=== PATIENT | female | born 1965 | race Caucasian/White ===

== ENCOUNTER → 2024-10-13 | Outpatient (CLI) | payer OTHER, SELFPAY ==
[2024-10-13 13:08] LABS: AST(SGOT) 32 U/L (15-37); Alanine Aminotransfer ALT/SGPT 58 U/L (13-56); Albumin, Serum 3.8 g/dL (3.2-5.0); Alkaline Phosphatase 57 U/L (45-117); Bilirubin, Direct 0.12 mg/dL (0.00-0.30); Globulin 3.9 g/dL (2.2-4.2); Protein, Total 7.7 g/dL (6.4-8.2)
[2024-10-15 09:07] LABS: Endomysial Antibody IgA Negative (Negative); Immunoglobulin A 253 mg/dL (87-352); t-Transglutaminase IgA <2 U/mL (0-3)
== END | disposition home or self-care (01) ==
PROVIDERS: Referring Provider Nurse Practitioner Acute Care; Visit Provider Nurse Practitioner Acute Care
DX: R19.7 Diarrhea, unspecified (principal); R15.2 Fecal urgency; R10.9 Unspecified abdominal pain
CPT/HCPCS: 36415; 80076; 82784; 83516; 84443; 86255

== ENCOUNTER → 2024-11-02 | Outpatient (CLI) | payer OTHER, SELFPAY ==
--- NOTE | 2024-11-02 09:19 | US_ITS ---
HISTORY: Elevated ALTs. TECHNIQUE: Doshi scale and color doppler imaging was performed of the right upper quadrant. 70 images. COMPARISON: None. FINDINGS: LIVER: 19.2 cm in length. Increased echogenicity with a 2.3 x 3 x 3.8 cm cyst in the left lobe. No intrahepatic ductal dilatation. MAIN PORTAL VEIN: Patent with hepatopedal flow. COMMON BILE DUCT: 5 mm in diameter. GALLBLADDER: Surgically absent. PANCREAS: Partially obscured distally due to overlying bowel gas. RIGHT KIDNEY: 10.7 cm in length with a cortical thickness of 1.1 cm. 6 mm echogenic focus in the upper pole without hydronephrosis. US/Abdomen Limited IMPRESSION: Hepatic steatosis with hepatomegaly. 3.8 cm cyst in the left hepatic lobe. Cholecystectomy. Nonobstructing right renal calculus. Electronically Signed: Emily Lujan MD at 14:57 EST ,
[2024-11-04 12:08] LABS: Calprotectin, Stool 16 ug/g (0-120)
== END | disposition home or self-care (01) ==
PROVIDERS: Referring Provider Nurse Practitioner Acute Care; Visit Provider Nurse Practitioner Acute Care
DX: R74.01 Elevation of levels of liver transaminase levels (principal); K58.9 Irritable bowel syndrome, unspecified; R19.7 Diarrhea, unspecified; R15.2 Fecal urgency; R10.9 Unspecified abdominal pain
CPT/HCPCS: 76705; 83993; 87177; 87209; 87493; 87506

== ENCOUNTER 2024-12-15 12:09 | Day surgery (SDC) | payer OTHER, SELFPAY ==
[2024-12-15] VITALS (8 sets, daily range): BP systolic 90–153; BP diastolic 52–84; PULSE 65–90; RESP 16–18; TEMP 36.4–36.9; O2SAT 98–100; BMI 33.7
--- NOTE | 2024-12-15 12:45 | PCM.PRE.AN2 ---
ASA Classification* ASA Classification ASA Classification: 2 Assessment & Plan Anesthesia* Anesthesia Assessment Anesthesia Assessment: Discussed sedation and/or anesthesia options, risks, benefits, and alternatives with patient/parents/legal guardian/POA. Questions invited. The patient/parents/legal guardian/POA seems to understand and agrees to proceed with anesthesia plan. Reviewed the physical assessment, medical history, allergy history and patient home medications list prior to surgery/procedure/anesthetic and documented any changes. Performed airway and anesthesia risk assessments. 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 When Was Last Pacemaker Check QUESTION #4 FULL TEXT: You/Your Family Experience fever (hyperthermia) with Anesthesia Last Oral Intake Last Oral intake: Last Oral Intake NPO since 09:30 12/15/24 12:28 Meds taken in AM with sips of water? 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 Female Yes 12/11/24 13:18 HX of Motion Sickness Yes 12/11/24 13:18 HX of N/V After Surgery No 12/11/24 13:18 Non-Smoker Yes 12/11/24 13:18 Duration of Surgery greater No 12/11/24 13:18 than 60 minutes Number of Risk Factors 3 12/11/24 13:18 PONV Score Moderate Risk 12/11/24 13:18 Height & Weight Height & Weight: Anesthesia: Height & Weight Height 5 ft 3 in 12/15/24 12:28 Weight: 86.5 kg 12/15/24 12:28 Body Mass Index (BMI) 33.7 12/15/24 12:28 Respiratory Assessment Respiratory Assessment - sed middle school teacher: Respiratory Tract Infection Hx - sed middle school teacher Hx Respiratory Tract Infection No 12/11/24 13:18 STOP Sleep Apnea STOP Sleep Apnea - sed middle school teacher: STOP Sleep Apnea - sed middle school teacher Hx Hypertension No 12/11/24 13:18 Hx Sleep Apnea No 12/11/24 13:18 CPAP BIPAP Do you snore loudly (louder No 12/11/24 13:18 than talking or can be heard Do you often feel tired/ No 12/11/24 13:18 fatigued/ sleepy during daytime? Has anyone observed you stop No 12/11/24 13:18 breathing during sleep? STOP Results Negative 12/11/24 13:18 QUESTION #5 FULL TEXT : Do you snore loudly (louder than talking or can be heard through closed doors)? 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 Specify any problems Hx of Preganancy in last 3 No 12/11/24 13:18 Months Nurse Filling Out Transfusion DSCHRIBER 12/11/24 13:18 & Questions: Date: 12/11/24 12/11/24 13:18 Time: 13:19 12/11/24 13:18 Patient unable to answer at this time (ie. confused, unrespo /Reproduction History /Reproductive History - sed middle school teacher: /Reproductive Hx- sed middle school teacher Hx Now No 12/11/24 13:18 Gestational Age (in weeks): EDC: Hx Hx Para Hx Section SAB No 12/11/24 13:18 PFSH Medical History Wears glasses Post-menopausal Alcohol use Restless legs History of IBS Former smoker Lymphocytosis Urticaria Diarrhea Home Medications ?Medication ?Instructions ?Recorded ?Last Taken ?Type cyproheptadine 4 mg tablet 4 mg PO QHS 10/12/24 12/14/24 History desloratadine 5 mg tablet 5 mg PO QDAY 10/12/24 12/14/24 History famotidine 20 mg tablet 20 mg PO BID 10/12/24 12/15/24 History montelukast 10 mg tablet 10 mg PO QDAY 10/12/24 12/14/24 History acetaminophen 500 mg capsule 500 mg PO Q6H PRN pain 10/13/24 12/12/24 History calcium carbonate (Tums) 300 mg PO BID PRN dyspepsia 10/13/24 12/14/24 History cholestyramine (with sugar) 4 gram 4 g PO BID #60 ea 10/13/24 12/14/24 Rx powder for susp in a packet (Questran) Allergy/AdvReac Type Severity Reaction Status Date / Time cat dander (cats) Allergy Hives Verified 12/15/24 12:27 egg (egg whites) Allergy Hives Verified 12/15/24 12:50 Environmental Allergies: Allergy Hives Verified 12/15/24 12:27 Uncoded (dust) grass pollen Allergy Hives Verified 12/15/24 12:27 mold Allergy Hives Verified 12/15/24 12:27 Family History Mother CAD (coronary artery disease) Diabetes Hypertension Father CAD (coronary artery disease) Surgical History Hx laparoscopic cholecystectomy Hx of tubal ligation Social History Smoking Status: Former smoker alcohol intake: current alcohol intake frequency: holidays/special occasions only Review of Systems (Anesthesia) ROS Narrative System reviewed and no additional complaints, except as documented.
--- NOTE | 2024-12-15 13:30 | COLBX_PTH ---
PATIENT: CRISSY RAMIREZ LOC: EN U#:[id number] AGE/SX: 59/F ROOM: RE12/15/[address]: Dr. Hari Chavarria DO : 1965 BED: DIS: 12/15/2024 SPEC #: [id number] RECD: 12/15/24 14:41 STATUS: KIANNA REMinor #: [id number] WING: 12/15/24 13:[address]: Hari Chavarria DEPT: SURGICAL PATHOLOGY RECD BY: Fanny Ortez ENTERED: 12/16/24 07:52 SP TYPE: COLON BX OTHR DR: STEVEN Willoughby Tissues: A - Ileum, NOS B - COLON BIOPSY Procedures: Surgery Specimen Level IV HEADER OPERATION: Colonoscopy, biopsy PRE-OP DIAGNOSIS: Diarrhea, fecal urgency TISSUE SUBMITTED: A- Terminal ileum biopsy, B- Random colonic biopsy MICROSCOPIC DIAGNOSIS A. Terminal ileum, biopsy: Fragments of small intestinal mucosa, no pathologic diagnosis. See comment. B. Colon, random biopsy: Fragments of colonic mucosa with focal minimal glandular distortion and focal area suggestive of granuloma formation. See comment. 12/17/2024 COMMENT A. Prominent lymphoid aggregates are noted. B. Active inflammation is not seen. Correlation with clinical, endoscopic findings and appropriate follow up are necessary. MICROSCOPIC DESCRIPTION Slides are reviewed. GROSS DESCRIPTION A. Received in fixative is one container labeled with the patient's name and designated Terminal ileum biopsy. The specimen consists of multiple irregular fragments of light urbano soft tissue that in aggregate measure 1 x 0.4 x 0.1 cm. The specimen is totally submitted in one cassette. B.Received in fixative is one container labeled with the patient's name and designated Random colonic biopsy. The specimen consists of multiple irregular fragments of light urbano soft tissue that in aggregate measure 2 x 0.5 x 0.1 cm. The specimen is totally submitted in one cassette. 12/16/2024 TC:5 CPT:94487l9
--- NOTE | 2024-12-15 13:47 | PCM.HP.STD ---
HPI - General General Date of Admission: 12/15/24 Date of Service: 12/15/24 Chief Complaint: Diarrhea and abdominal pain HPI Narrative CRISSY RAMIREZ, is a 59 F who presents for the endoscopic evaluation of diarrhea and abdominal pain. 59y/o female presents for consultation with complaints of diarrhea. She reports a life long issue with diarrhea with a change in frequency in the past few months. She has experienced sudden onset abdominal cramping during meals with urgency and diarrhea. [place] 6. She denies any weight loss or bleeding. Primary care records reviewed. Cologuard was negative July 2023. She will complete stool testing and trial cholestyramine while awiting colonoscopy. Labs completed 09/11/2024 revealed mildly elevated ALT (34). She will repeat a liver panel now and schedule ABD US. She will follow-up in the office post work-up to review findings. Cologuard negative 07/31/2023 - CCX 2017 - no change with probiotic - she has never been on cholestyramine or colestipol - no improvement with OTC fiber supplements - diarrhea now more than once a day since CCX - urgency the past few months with cramping during meals and having to get up from the table - not with every meals - denies any loss of appetite - if she takes an OTC antidiarrheal before a meal this can help prevent diarrhea - especially when dining out - she does have nocturnal stools on occasion - denies any weight loss or bleeding - she avoids salads, ice cream, Swazi (anything spicy), yogurt - eats a lot of red meat and pork - denies any fevers or night sweats - denies any h/o colonoscopy - Paternal GM with Colon CA - possibly - occasional HB dietary related - denies any N/V - denies any dysphagia - chronic hives - allergy testing completed - allergy shots bi-weekly and on PO - no change in medication doses - denies any stool testing - denies any h/o pancreatitis - she is not diabetic - denies any family h/o IBD or celiac disease \ [facility] Medical History Wears glasses Post-menopausal Alcohol use Restless legs History of IBS Former smoker Lymphocytosis Urticaria Diarrhea Home Medications ?Medication ?Instructions ?Recorded ?Last Taken ?Type cyproheptadine 4 mg tablet 4 mg PO QHS 10/12/24 12/14/24 History desloratadine 5 mg tablet 5 mg PO QDAY 10/12/24 12/14/24 History famotidine 20 mg tablet 20 mg PO BID 10/12/24 12/15/24 History montelukast 10 mg tablet 10 mg PO QDAY 10/12/24 12/14/24 History acetaminophen 500 mg capsule 500 mg PO Q6H PRN pain 10/13/24 12/12/24 History calcium carbonate (Tums) 300 mg PO BID PRN dyspepsia 10/13/24 12/14/24 History cholestyramine (with sugar) 4 gram 4 g PO BID #60 ea 10/13/24 12/14/24 Rx powder for susp in a packet (Questran) Allergy/AdvReac Type Severity Reaction Status Date / Time cat dander (cats) Allergy Hives Verified 12/15/24 12:27 egg (egg whites) Allergy Hives Verified 12/15/24 12:50 Environmental Allergies: Allergy Hives Verified 12/15/24 12:27 Uncoded (dust) grass pollen Allergy Hives Verified 12/15/24 12:27 mold Allergy Hives Verified 12/15/24 12:27 Family History Mother CAD (coronary artery disease) Diabetes Hypertension Father CAD (coronary artery disease) Surgical History Hx laparoscopic cholecystectomy Hx of tubal ligation Social History Smoking Status: Former smoker alcohol intake: current alcohol intake frequency: holidays/special occasions only ROS Constitutional Constitutional: Denies fatigue, fever(s), poor appetite, weight gain or weight loss Gastrointestinal Gastrointestinal: Denies belching, bloating, change in bowel habits, change in stool character, chewing difficulty, coffee ground emesis, constipation, cramping, diarrhea, dyspepsia, dysphagia, early satiety, excessive flatus, fecal incontinence, heartburn, hematemesis, hematochezia, hemorrhoids, loose stools, melena, nausea, odynophagia, rectal bleeding, tenesmus, vomiting or weight changes Vital Signs Vital Signs Vital Signs: 12/15/24 12:28 12/15/24 12:28 12/15/24 12:53 Temperature 97.7 F L 97.7 F L Temperature Source Temporal Pulse Rate 90 90 Respiratory Rate 18 18 Respiratory Pattern Normal Blood Pressure 153/84 H 153/84 H Blood Pressure Mean 107 Blood Pressure Source Monitor Blood Pressure Position Semi-Fowlers Blood Pressure Location Left Arm Pulse Ox 99 99 Oxygen Delivery Method Room Air Room Air Weight Weight: 190 lb 11.198 oz Body Mass Index (BMI) 33.7 Assessment & Plan Assessment/Plan (1) Diarrhea: QUALIFIERS: Diarrhea type: unspecified type Qualified Code(s): R19.7 - Diarrhea, unspecified (2) Abdominal cramping: PLAN: Assessment and Plan Assessment and Plan (1) Diarrhea: Status: Acute Qualifiers: Diarrhea type: unspecified type Qualified Code(s): R19.7 - Diarrhea, unspecified Plan: Possibly bile acid diarrhea secondary to CCX Celiac labs - if positive will schedule EGD Start Questran BID Colonoscopy (2) Fecal urgency: Status: Acute Plan: Stool culture r/o acute infection due to recent change in bowel habits with increase in diarrhea assoc. w/ new onset urgency and cramping (3) Abdominal cramping: Status: Acute Plan: Stool Culture - We have discussed possible dietary triggers including lactose - She is seeing an wicker molded candles and previous allergy testing revealed eggs as only food allergen -- Consider use of dicyclomine in future pending symptoms (4) Elevated ALT measurement: Status: Acute Comment: minutely elevated (34) on 09/11/2024 Plan:
--- NOTE | 2024-12-15 14:28 | OP.CCLET_ITS ---
12/15/2024 Dat Willoughby Re : Colonoscopy procedure for Consuelo Ovalle Josesito This procedure was performed on Sunday, December 15, 2024. My impressions and recommendations are as follows: Impressions : - Congested mucosa in the recto-sigmoid colon, in the sigmoid colon and in the descending colon. Biopsied. - Congested mucosa in the terminal ileum. Biopsied. Recommendations : - Discharge patient to home. - Resume previous diet. - Continue present medications. - Await pathology results. - Repeat colonoscopy in 5 years for surveillance based on pathology results. My findings are described in the full procedure note, which is enclosed. If I can be of further assistance, please feel free to contact me at . Sincerely, Hari Chavarria, 12/15/2024 2:28:16 PM This report has been signed electronically.
--- NOTE | 2024-12-15 14:28 | OP.COLON_ITS ---
Patient Name: Consuelo Hernandez Procedure Date: 12/15/2024 2:01 PM Date of : 1965 Age: 59 Procedure: Colonoscopy Indications: Clinically significant diarrhea of unexplained origin Providers: Hari Chavarria DO Referring MD: Dat Willoughby Medicines: Monitored Anesthesia Care Patient Profile: This is a 59 year old female. Refer to note in patient chart for documentation of history and physical. Last Colonoscopy: several years ago. Complications: No immediate complications. Procedure: Pre-Anesthesia Assessment: - Prior to the procedure, a History and Physical was performed, and patient medications and allergies were reviewed. The patient is competent. The risks and benefits of the procedure and the sedation options and risks were discussed with the patient. All questions were answered and informed consent was obtained. Patient identification and proposed procedure were verified by the physician in the pre-procedure area. Mental Status Examination: alert and oriented. Airway Examination: normal oropharyngeal airway and neck mobility. Respiratory Examination: clear to auscultation. CV Examination: normal. Prophylactic Antibiotics: The patient does not require prophylactic antibiotics. Prior Anticoagulants: The patient has taken no anticoagulant or antiplatelet agents except for NSAID medication. ASA Grade Assessment: II - A patient with mild systemic disease. After reviewing the risks and benefits, the patient was deemed in satisfactory condition to undergo the procedure. The anesthesia plan was to use monitored anesthesia care (MAC). Immediately prior to administration of medications, the patient was re-assessed for adequacy to receive sedatives. The heart rate, respiratory rate, oxygen saturations, blood pressure, adequacy of pulmonary ventilation, and response to care were monitored throughout the procedure. The physical status of the patient was re-assessed after the procedure. After I obtained informed consent, the scope was passed under direct vision. Throughout the procedure, the patient's blood pressure, pulse, and oxygen saturations were monitored continuously. The Colonoscope was introduced through the anus and advanced to the cecum, identified by appendiceal orifice and ileocecal valve. The colonoscopy was performed without difficulty. The patient tolerated the procedure well. The quality of the bowel preparation was adequate. The terminal ileum, ileocecal valve, appendiceal orifice, and rectum were photographed. Scope In: 2:06:03 PM Scope Withdrawal Time 0 hours 11 minutes 26 seconds Scope Out: 2:21:34 PM Total Procedure Duration Time 0 hours 15 minutes 31 seconds Findings: The perianal and digital rectal examinations were normal. Pertinent negatives include normal sphincter tone. An area of mildly congested mucosa was found in the recto-sigmoid colon, in the sigmoid colon and in the descending colon. Biopsies were taken with a cold forceps for histology. Verification of patient identification for the specimen was done. Estimated blood loss was minimal. A localized area of the terminal ileum was congested. Biopsies were taken with a cold forceps for histology. Verification of patient identification for the specimen was done. Estimated blood loss was minimal. Impression: - Congested mucosa in the recto-sigmoid colon, in the sigmoid colon and in the descending colon. Biopsied. - Congested mucosa in the terminal ileum. Biopsied. Recommendation: - Discharge patient to home. - Resume previous diet. - Continue present medications. - Await pathology results. - Repeat colonoscopy in 5 years for surveillance based on pathology results. Procedure Code(s): --- Professional --- 98579, Colonoscopy, flexible; with biopsy, single or multiple CPT copyright 2021 [employer]. All rights reserved. The codes documented in this report are preliminary and upon manager of corporate review may be revised to meet current compliance requirements. Hari Chavarria DO 12/15/2024 2:28:16 PM This report has been signed electronically. Number of Addenda: 0 Note Initiated On: 12/15/2024 2:01 PM
--- NOTE | 2024-12-15 14:33 | PCM.POST.ANE ---
Anesthesia: Postop Eval I Current Vital Signs Temperature: 98.5 F Pulse Rate: 80 Blood Pressure: 105/64 Respiratory Rate: 16 Pulse Ox: 99 Oxygen Delivery Method: Room Air Assessment Airway patent: Yes Spontaneous unlabored respirations: Yes Mental status: Asleep nausea: No Vomiting: No Anesthesia Complication: No Fluid Hydration Crystalloid volume administer (ml): 50 Total IV fluid infused: 50 Progress Note Anesthesia document: Postop Eval 1 completed: Yes
--- NOTE | 2024-12-15 18:42 | PCM.POSTANE2 ---
Anesthesia Postop Eval I Sum Postop Eval Completion status Anesthesia document: Postop Eval 1 completed: Yes Anesthesia Postop Eval I Summary Anesthesia Postop Eval I Summary: Anesthesia Postop Eval I: Assessment Summary Airway patent Yes 12/15/24 14:34 [email or web address] Spontaneous unlabored Yes 12/15/24 14:34 [email or web address] respirations Mental status Asleep 12/15/24 14:34 [email or web address] nausea No 12/15/24 14:34 [email or web address] Vomiting No 12/15/24 14:34 [email or web address] Anesthesia Postop Eval I: Fluid Summary Crystalloid volume administer 50 12/15/24 14:34 [email or web address] (ml) Colloids volume administered ( ml) Blood Product volume administered (ml) Total IV fluid infused 50 12/15/24 14:34 [email or web address] Anesthesia Postop Eval I: Summary Notes Anesthesia Complication No 12/15/24 14:34 [email or web address] Anesthesia Complication Comment: Post-operative progress note Anesthesia: Postop Eval II Evaluation Mental status: Awake Pain Level: 0 nausea: No Vomiting: No Complications Anesthesia Complication: No
== END 2024-12-15 14:59 | disposition home or self-care (01) ==
LOC: EN 12:10 → AC 12:11
PROVIDERS: Visit Provider Internal Medicine Gastroenterology
PROC: 0DJD8ZZ Inspection of Lower Intestinal Tract, Via Natural or Artificial Opening Endoscopic (ICD-10-PCS; CPT 45378; principal; 2024-12-15 13:25)
DX: K63.89 Other specified diseases of intestine (principal); R19.7 Diarrhea, unspecified; R10.9 Unspecified abdominal pain; Z79.899 Other long term (current) drug therapy; Z87.891 Personal history of nicotine dependence
CPT/HCPCS: 45380; 88305; A4216; J2405

== ENCOUNTER → 2025-01-05 | Outpatient (CLI) | payer OTHER, SELFPAY ==
[2025-01-05 12:34] LABS: Hepatitis B Surface Antibody REAC; Hepatitis B Surface Antigen Nonreactive (Nonreactive); Hepatitis C Antibody Nonreactive (Nonreactive)
[2025-01-05 12:46] LABS: AST(SGOT) 31 U/L (<=31); Alanine Aminotransfer ALT/SGPT 52 U/L (<=34); Albumin, Serum 4.4 g/dL (3.4-4.8); Alkaline Phosphatase 61 U/L (35-104); Bilirubin, Direct 0.16 mg/dL (0.00-0.30); Protein, Total 7.4 g/dL (5.9-8.4); Total Bilirubin 0.37 mg/dL (0.00-1.30)
[2025-01-05 13:23] LABS: CRP < 3.00 mg/L (0.0-3.0)
[2025-01-06 05:07] LABS: Hepatitis A AB, Total Negative (Negative); Hepatitis B Core Ab Total Negative (Negative)
== END | disposition home or self-care (01) ==
LOC: LAB 10:43
PROVIDERS: Referring Provider Nurse Practitioner Acute Care; Visit Provider Nurse Practitioner Acute Care
DX: R74.01 Elevation of levels of liver transaminase levels (principal); K76.0 Fatty (change of) liver, not elsewhere classified
CPT/HCPCS: 36415; 80076; 86140; 86704; 86706; 86708; 86803; 87340